=== PATIENT | male | born 1950 | race Caucasian/White ===

== ENCOUNTER 2021-02-04 21:08 | Observation (INO) | payer MEDICARE, OTHER ==
[~2021-02-04] VITALS: Ht 175.3 cm; Wt 108.4 kg
[2021-02-04 22:01] LABS: HEMOGLOBIN 14.7 gm/dl (14.0-17.5); RED BLOOD COUNT 4.92 M/UL (4.20-5.50)
[2021-02-04 22:23] LABS: BUN/CREATININE RATIO 17 (0-10)
[2021-02-05] MEDS ORDERED: FIORCET PO (02:33)
[2021-02-05] MEDS ORDERED: VORT5TAB PO (02:35)
[2021-02-05] MEDS ORDERED: ASPIRIN EC81 MG PO (02:36)
[2021-02-05] MEDS ORDERED: HYDROCHLOROTHIA25 MG PO (02:36)
[2021-02-05] MEDS ORDERED: MICARDIS40 MG PO (02:36)
[2021-02-05] MEDS ORDERED: PRAVASTATIN SOD40 MG PO (02:37)
[2021-02-05] MEDS ORDERED: MEN'S ONE DAIL1 EACH PO (02:37)
[2021-02-05 06:16] LABS: HEMOGLOBIN 14.1 gm/dl (14.0-17.5); RED BLOOD COUNT 4.53 M/UL (4.20-5.50); WHITE BLOOD COUNT 6.2 K/UL (4.5-11.0)
[2021-02-05 06:53] LABS: BUN/CREATININE RATIO 17 (0-10)
[2021-02-05] MEDS ORDERED: LOPRESSOR 25 MG25 MG PO (16:17)
== END 2021-02-05 17:17 | disposition home or self-care (01) ==
LOC: ER1 21:08 → CDU 02-05 00:25 → MED SURG 4 02-05 15:34
PROVIDERS: Physician Assistant; ADMIT Internal Medicine
DX: R07.89 Other chest pain (principal); I10 Essential (primary) hypertension; I25.119 Atherosclerotic heart disease of native coronary artery with unspecified angina pectoris; I49.3 Ventricular premature depolarization; E78.5 Hyperlipidemia, unspecified; E66.01 Morbid (severe) obesity due to excess calories; Z68.35 Body mass index [BMI] 35.0-35.9, adult; Z20.822 Contact with and (suspected) exposure to COVID-19; Z79.82 Long term (current) use of aspirin; Z79.899 Other long term (current) drug therapy
CPT/HCPCS: ECHO; 71045; 78452; 80048; 80053; 82550; 82553; 83874; 83880; 84484; 85025; 85379; 85610; 85730; 93005; 93017; 93306; 99285; A9502; G0378; J2785; U0002